=== PATIENT | female | born 1935 | race Caucasian/White ===

== ENCOUNTER 2018-05-09 08:46 | Emergency (ER) | payer MEDICARE ==
--- OUTSIDE RECORDS SUMMARY | 2018-05-09 08:53 | XMS REPORT ---
:1935 External Reference #:[id number] Author Organization [facility] Address [address] [address] Phone [phone] Care Team Providers Name Role Phone Maury Blackman MD Primary Care Physician Unavailable Payers Type Date Identification Numbers Payment Provider Subscriber Medicare Primary Effective: Policy Number: Medicare Ana Lilia Torres 1999 [id number] PayID: [id number] [address] [place] [address] [facility] Part B Effective: Policy Number: [facility] Ana Lilia Esteban [id number] [facility] Brian PayID: [id number] [address] [place] [address] Problems Date Description Provider Status Onset: 08/16/2013 Old myocardial infarction Alayna Acharya M.D. Active Onset: 08/16/2013 Essential hypertension Alayna Acharya M.D. Active Onset: 08/16/2013 Pure hypercholesterolemia Alayna Acharya M.D. Active Onset: 08/16/2013 Hypo-osmolality and or hyponatremia Alayna Acharya M.D. Active Onset: 10/11/2014 Atrial fibrillation Alayna Acharya M.D. Active Onset: 10/11/2014 Coronary arteriosclerosis Alayna Acharya M.D. Active Onset: 10/11/2014 Hyperlipidemia Alayna Acharya M.D. Active Onset: 10/11/2014 Benign essential hypertension Alayna Acharya M.D. Active Onset: 10/29/2015 Ischemic heart disease Alayna Acharya M.D. Active Onset: 05/02/2016 Paroxysmal atrial fibrillation Alayna Acharya M.D. Active Family History Date Family Member(s) Problem(s) Comments Father Peripheral Vascular Disease carotid disease (PVD) Mother Coronary Artery Disease (CAD) CABG, lived to 98 yo Also valve replacement 80 yo First Brother Coronary Artery Disease (CAD) CABG age 59 Social History Type Date Description Comments Marital Status Lives With Spouse Occupation Retired Cigarette Use Never Smoked Cigarettes ETOH Use Denies alcohol use Smoking Patient has never smoked Recreational Drug Use Denies Drug Use Daily Caffeine Half-Caffiene Coffee Exercise Type/Frequency Exercises sporadically walks dogs Allergies, Adverse Reactions, Alerts Date Description Reaction Status Severity Comments 08/16/2013 Sulfa Rash active 02/08/2014 Naproxen Increased blood pressure active Severe 08/16/2013 NKDA inactive Medications Medication Date Status Form Strength Qnty SIG Indications Ordering Provider Atorvastatin Calcium 10/29 Active Tablets 40mg 90tab 1 by Alayna s mouth Patrizia, every day M.D. Sotalol HCL (AF) 10/11 Active Tablets 120mg 90tab 1/2 tab Alayna s by mouth [place], twice a M.D. day Losartan Potassium 02/22 Active Tablets 50mg 180ta 1 by Alayna bs mouth [place], twice a M.D. day Hydrochlorothiazide Active Tablets 25mg 30tab 1/2 Unknown / s tablet po Am Aspirin Active Tablets 81mg 100ta 1 po qd Unknown /0000 bs Omeprazole Active Capsules 20mg 90cap 1 po qd Unknown / DR walker Gabapentin Active Capsules 300mg 90cap 2 tab Am, [place], / s 2 tab MD Maury afternoon , 3 tabs po qhs Acetaminophen Extra Active Tablets 500mg 1 tab by Unknown Strength /0000 mouth twice a day as needed Imodium A-D Active Tablets 2mg take 1 Unknown /0000 tablet by mouth after each loose stool for diarrhea as needed Lorazepam Active Tablets 0.5mg 1 every 4 Unknown /0000 hours as needed anxiety Potassium Chloride Active Capsules 10Meq 3 by Unknown ER /0000 ER mouth every day Amlodipine Besylate Active Tablets 2.5mg 1 by Unknown /0000 mouth every day Magnesium Active Tablets 400mg 1 by Unknown /0000 mouth once a day Vitamin B12 Active Tablets 1000mcg 1 by Unknown /0000 ER mouth every day Prochlorperazine 00 Active Tablets 5mg 1 by Unknown Maleate /0000 mouth three times a day as needed Cranberry Extract 02/08 Hx Cap 3600mg 2 caps po . daily Izabella Moreira M.D. 10/10 Sotalol HCL 02/21 Hx Tablets 80mg 90tab one half Alayna s tablet by Patrizia - mouth M.DCindy 10/11 twice a day Atorvastatin Calcium Hx Tablets 20mg 90tab take 1 Unknown / s tablet at - bedtime 10/29 Fish Oil Hx Capsules 1000mg 90cap 1 tab po Unknown / s daily - 05/01 Multivitamin Hx daily / - 01/12 Calcium + D Hx daily / - 01/12 Coq-10 Hx Cap 200mg 1 po Unknown / daily - 09/28 Multivitamins Hx 1 tablet Unknown / po daily - 09/28 [place] 3 Hx Capsules 1000mg 1 cap po Unknown /0000 t.i.d - 09/28 Prochlorperazine Hx Tablets 5mg 1 by Unknown Maleate /0000 mouth - every 6 /03 hours needed nausea Calcium + D3 Hx Tablets 1 by Unknown /0000 mouth - every day 09/28 Vital Signs Date Vital Result Comment 04/20/2018 Height 58 inches 4'10" Weight 120.00 lb Heart Rate 68 /min BP Systolic Sitting 128 mmHg lue reg cuff BP Diastolic Sitting 60 mmHg lue reg cuff BP Systolic Standing 124 mmHg BP Diastolic Standing 70 mmHg Respiratory Rate 16 /min BMI (Body Mass Index) 25.1 kg/m2 09/29/2017 Height 58 inches 4'10" Weight 119.00 lb no shoes Heart Rate 90 /min BP Systolic Sitting 122 mmHg Lue reg cuff BP Diastolic Sitting 72 mmHg Lue reg cuff BP Systolic Standing 128 mmHg Lue reg cuff BP Diastolic Standing 76 mmHg Lue reg cuff Respiratory Rate 16 /min BMI (Body Mass Index) 24.9 kg/m2 Ejection Fraction 65-70% echo 10/18/15 04/28/2017 Height 59 inches 4'11" Weight 119.00 lb Heart Rate 74 /min BP Systolic Sitting 128 mmHg Rue reg cuff BP Diastolic Sitting 74 mmHg Rue reg cuff BP Systolic Standing 134 mmHg Rue BP Diastolic Standing 88 mmHg Rue Respiratory Rate 16 /min BMI (Body Mass Index) 24.0 kg/m2 Ejection Fraction 65-70% 10/18/15 10/24/2016 Height 59.25 inches 4'11.25" Weight 120.00 lb with shoes Heart Rate 70 /min BP Systolic Sitting 146 mmHg Lue reg cuff BP Diastolic Sitting 80 mmHg Lue reg cuff BP Systolic Standing 140 mmHg Lue reg cuff BP Diastolic Standing 72 mmHg Lue reg cuff Respiratory Rate 17 /min BMI (Body Mass Index) 24.0 kg/m2 Ejection Fraction 65-70% date 10/18/15 ECHO 05/02/2016 Height 58.5 inches 4'10.50" Weight 121.00 lb no shoes Heart Rate 70 /min BP Systolic Sitting 158 mmHg LA reg cuff BP Diastolic Sitting 90 mmHg LA reg cuff BP Systolic Standing 156 mmHg LA reg cuff BP Diastolic Standing 90 mmHg LA reg cuff BP Systolic Recheck 136 mmHg Lue, reg cuff recheck BP Diastolic Recheck 86 mmHg Lue, reg cuff recheck Respiratory Rate 16 /min BMI (Body Mass Index) 24.9 kg/m2 Ejection Fraction 65-70% 10/18/2015 11/16/2015 Height 58.5 inches 4'10.50" Weight 122.31 lb Heart Rate 72 /min BP Systolic Sitting 142 mmHg LA reg cuff BP Diastolic Sitting 84 mmHg LA reg cuff BP Systolic Standing 136 mmHg LA reg cuff BP Diastolic Standing 82 mmHg LA reg cuff Respiratory Rate 16 /min BMI (Body Mass Index) 25.1 kg/m2 Ejection Fraction 65-70% 10/18/15 10/29/2015 Height 58.5 inches 4'10.50" Weight 122.00 lb w/ shoes Heart Rate 78 /min reg BP Systolic Sitting 142 mmHg Lue, reg cuff BP Diastolic Sitting 84 mmHg Lue, reg cuff BP Systolic Standing 134 mmHg Lue BP Diastolic Standing 86 mmHg Lue Respiratory Rate 16 /min BMI (Body Mass Index) 25.1 kg/m2 Ejection Fraction 65-70% as of 10/18/15 echo 10/30/2014 Height 58.5 inches 4'10.50" Weight 121.31 lb with shoes Heart Rate 66 /min BP Systolic Sitting 154 mmHg Ra reg cuff BP Diastolic Sitting 84 mmHg Ra reg cuff Respiratory Rate 16 /min BMI (Body Mass Index) 24.9 kg/m2 10/11/2014 Height 58.5 inches 4'10.50" Weight 121.00 lb with shoes Heart Rate 76 /min BP Systolic Sitting 130 mmHg Ra reg cuff BP Diastolic Sitting 66 mmHg Ra reg cuff BP Systolic Standing 124 mmHg Ra reg cuff BP Diastolic Standing 64 mmHg Ra reg cuff Respiratory Rate 17 /min BMI (Body Mass Index) 24.9 kg/m2 02/08/2014 Height 58.5 inches 4'10.50" Weight 120.00 lb Heart Rate 72 /min BP Systolic Sitting 138 mmHg BP Diastolic Sitting 80 mmHg Respiratory Rate 12 /min BMI (Body Mass Index) 24.7 kg/m2 09/21/2013 Heart Rate 62 /min BP Systolic Sitting 156 mmHg Lf arm, reg cuff BP Diastolic Sitting 88 mmHg Lf arm, reg cuff BP Systolic Standing 152 mmHg BP Diastolic Standing 92 mmHg Respiratory Rate 14 /min 08/16/2013 Height 58.5 inches 4'10.50" Weight 120.00 lb 2 Lbs decrease 02/08/13 Heart Rate 70 /min BP Systolic Sitting 142 mmHg Lf arm, reg cuff BP Diastolic Sitting 84 mmHg Lf arm, reg cuff BP Systolic Standing 138 mmHg BP Diastolic Standing 84 mmHg Respiratory Rate 14 /min BMI (Body Mass Index) 24.7 kg/m2 Results Test Date Test Result H/L Range Note Laboratory test finding 10/02/2017 Magnesium 2.4 mg/dL 1.9-2.7 1 TSH (Thyroid Stim Horm) 2.96 mcIU/mL 0.34-5.60 1 Pathologist Review (SEE NOTE) 1, 2 CBC Auto Diff 10/02/2017 White Blood Count 8.4 10^3/uL 3.5-10.8 1 Red Blood Count 4.08 10^6/uL 4.0-5.4 1 Hemoglobin 13.0 g/dL 12.0-16.0 1 Hematocrit 39 % 35-47 1 Mean Corpuscular Volume 94 fL 80-97 1 Mean Corpuscular Hemoglobin 32 pg High 27-31 1 Mean Corpuscular HGB Conc 34 g/dL 31-36 1 Red Cell Distribution Width 12 % 10.5-15 1 Platelet Count 194 10^3/uL 150-450 1 Mean Platelet Volume 7 um3 Low 7.4-10.4 1 Abs Neutrophils 2.7 10^3/uL 1.5-7.7 1 Abs Lymphocytes 5.0 10^3/uL High 1.0-4.8 1 Abs Monocytes 0.6 10^3/uL 0-0.8 1 Abs Eosinophils 0.2 10^3/uL 0-0.6 1 Abs Basophils 0.1 10^3/uL 0-0.2 1 Abs Nucleated RBC 0 10^3/uL 1 Granulocyte % 31.9 % Low 38-83 1 Lymphocyte % 58.7 % High 25-47 1 Monocyte % 6.9 % 1-9 1 Eosinophil % 1.9 % 0-6 1 Basophil % 0.6 % 0-2 1 Nucleated Red Blood Cells % 0.2 1 Comp Metabolic Panel 10/02/2017 Sodium 135 mmol/L 133-145 1 Potassium 3.9 mmol/L 3.5-5.0 1 Chloride 98 mmol/L Low 101-111 1 Co2 Carbon Dioxide 32 mmol/L 22-32 1 Anion Gap 5 mmol/L 2-11 1 Glucose 94 mg/dL 70-100 1 Blood Urea Nitrogen 10 mg/dL 6-24 1 Creatinine 0.67 mg/dL 0.51-0.95 1 BUN/Creatinine Ratio 14.9 8-20 1 Calcium 9.4 mg/dL 8.6-10.3 1 Total Protein 6.3 g/dL Low 6.4-8.9 1 Albumin 4.2 g/dL 3.2-5.2 1 Globulin 2.1 g/dL 2-4 1 Albumin/Globulin Ratio 2.0 1-3 1 Total Bilirubin 1.60 mg/dL High 0.2-1.0 1 Alkaline Phosphatase 76 U/L 34-104 1 Alt 18 U/L 7-52 1 Ast 21 U/L 13-39 1 Egfr Non- 84.1 >60 1 Egfr 108.1 >60 1, 3 Lipid Panel - [facility] 11/05/2016 Creatine Kinase(CK) 83 U/L 10-223 4 Comp Metabolic Panel 11/05/2016 Sodium 132 mmol/L Low 133-145 Potassium 3.8 mmol/L 3.5-5.0 Chloride 95 mmol/L Low 101-111 Co2 Carbon Dioxide 30 mmol/L 22-32 Anion Gap 7 mmol/L 2-11 Glucose 85 mg/dL 70-100 Blood Urea Nitrogen 12 mg/dL 6-24 Creatinine 0.67 mg/dL 0.51-0.95 BUN/Creatinine Ratio 17.9 8-20 Calcium 9.4 mg/dL 8.6-10.3 Total Protein 6.2 g/dL Low 6.4-8.9 Albumin 4.0 g/dL 3.2-5.2 Globulin 2.2 g/dL 2-4 Albumin/Globulin Ratio 1.8 1-3 Total Bilirubin 1.50 mg/dL High 0.2-1.0 Alkaline Phosphatase 70 U/L 34-104 Alt 18 U/L 7-52 Ast 21 U/L 13-39 Egfr Non- 84.3 >60 Egfr 108.4 >60 5 Lipid Profile (Trig/Chol/HDL) 11/05/2016 Triglycerides 119 mg/dL 6 Cholesterol 154 mg/dL 7 HDL Cholesterol 52.5 mg/dL 8 LDL Cholesterol 78 mg/dL 9 Laboratory test finding 05/12/2016 LDL Cholesterol Direct 66 mg/dL 10 Protein Electrophoresis 02/08/2014 Total Protein(Pep) 6.4 g/dL 6.3 - 7.9 11 Albumin 3.5 g/dL 3.4-4.7 11 Alpha-1 Globulin 0.2 g/dL 0.1-0.3 11 Alpha-2 Globulin 0.9 g/dL 0.6-1.0 11 Beta Globulin 0.9 g/dL 0.7-1.2 11 Gamma Globulin 0.9 g/dL 0.6-1.6 11 Albumin/Globulin Ratio 1.22 11 Impression See Comment 11, 12 Laboratory test 02/08/2014 TSH (Thyroid 1.86 IU/mL 0.34-5.60 11, 13 finding Stimulating Horm) Vitamin B12 251 pg/mL 180-914 11, 14 Folate > 20.00 ng/mL >3.99 11, 15 Methylmalonic Acid 0.20 nmol/mL <=0.40 11, 16 Homocysteine 9 mcmol/L 11, 17 Debbie (Anti-Nuclear AB) Screen Negative Negative 11, 18 Erythrocyte Sed Rate 11 mm/Hr 0-40 11, 19 C Reactive Protein < 1.00 mg/L < 5.00 11, 20 Basic Metabolic Panel 09/19/2013 Sodium 131 mmol/L Low 133-145 Potassium 3.8 mmol/L 3.5-5.0 Chloride 94 mmol/L Low 101-111 Co2 Carbon Dioxide 32.0 mmol/L 22-32 Anion Gap 5.0 mmol/L 2-11 Glucose 92 mg/dL 70-100 Blood Urea Nitrogen 9 mg/dL 6-24 Creatinine 0.70 mg/dL 0.50-1.40 BUN/Creatinine Ratio 12.9 8-20 Calcium 9.4 mg/dL 8.1-9.9 Egfr Non- 80.7 >60 Egfr 103.8 >60 21 1 Variant LY 2 Mild absolute lymphocytosis, favor reactive. Clinical correlation and appropriate clinical follow-up suggested. Reviewed by Dr. Bal 3 Because ethnic data is not always readily available, this report includes an eGFR for both -Americans and non- Americans. The National Kidney Disease Education Program (NKDEP) does not endorse the use of the MDRD equation for patients that are not between the ages of 18 and 70, are , have extremes of body size, muscle mass, or nutritional status, or are non- or non-. According to the National Kidney Foundation, irrespective of diagnosis, the stage of the disease is based on the level of kidney function: Stage Description GFR(mL/min/1.73 m(2)) 1 Kidney damage with normal or decreased GFR 90 2 Kidney damage with mild decrease in GFR 60-89 3 Moderate decrease in GFR 30-59 4 Severe decrease in GFR 15-29 5 Kidney failure <15 (or dialysis) 4 FASTING Fasting next week CC: PMD Dr. Blackman 5 Because ethnic data is not always readily available, this report includes an eGFR for both -Americans and non- Americans. The National Kidney Disease Education Program (NKDEP) does not endorse the use of the MDRD equation for patients that are not between the ages of 18 and 70, are , have extremes of body size, muscle mass, or nutritional status, or are non- or non-. According to the National Kidney Foundation, irrespective of diagnosis, the stage of the disease is based on the level of kidney function: Stage Description GFR(mL/min/1.73 m(2)) 1 Kidney damage with normal or decreased GFR 90 2 Kidney damage with mild decrease in GFR 60-89 3 Moderate decrease in GFR 30-59 4 Severe decrease in GFR 15-29 5 Kidney failure <15 (or dialysis) 6 Desirable <150 Borderline high 150-199 High 200-499 Very High >500 7 Desirable <200 Borderline high 200-239 High >239 8 Low <40 Desirable: 40-60 High: >60 9 Desirable: <100 mg/dL Near Optimal: 100-129 mg/dL Borderline High: 130-159 mg/dL High: 160-189 mg/dL Very High: >189 mg/dL 10 Desirable: <100 mg/dL Near Optimal: 100-129 mg/dL Borderline High: 130-159 mg/dL High: 160-189 mg/dL Very High: >189 mg/dL 11 with immunofixation 12 RESULT: No apparent monoclonal protein on serum electrophoresis. Test Performed by: [place] [address] Visualizer: Cristian Burkett III, M.D. 13 with immunofixation 14 Normal Range 180 to 914 Indeterminate Range 145 to 180 Deficient Range <145 15 with immunofixation 16 Test Performed by: [place] [address] Visualizer: Cristian Burkett III, M.D. 17 -- REFERENCE VALUE -- <=13 (Fasting) Test Performed by: [place] [address] Visualizer: Cristian Burkett III, M.D. 18 with immunofixation 19 with immunofixation 20 Acute inflammation: >10.00 21 Because ethnic data is not always readily available, this report includes an eGFR for both -Americans and non- Americans. The National Kidney Disease Education Program (NKDEP) does not endorse the use of the MDRD equation for patients that are not between the ages of 18 and 70, are , have extremes of body size, muscle mass, or nutritional status, or are non- or non-. According to the National Kidney Foundation, irrespective of diagnosis, the stage of the disease is based on the level of kidney function: Stage Description GFR(mL/min/1.73 m(2)) 1 Kidney damage with normal or decreased GFR 90 2 Kidney damage with mild decrease in GFR 60-89 3 Moderate decrease in GFR 30-59 4 Severe decrease in GFR 15-29 5 Kidney failure <15 (or dialysis) Procedures Date CPT Code Description Status 04/20/2018 99592 EKG Tracing & Interpretation Completed 09/29/2017 59395 EKG Tracing & Interpretation Completed 04/28/2017 02705 EKG Tracing & Interpretation Completed 10/24/2016 31156 EKG Tracing & Interpretation Completed 05/02/2016 02510 EKG Tracing & Interpretation Completed 11/11/2015 36060 Holter Monitoring 24 HR New Completed 11/08/2015 38551 Holter Monitoring 24 HR New Completed 10/29/2015 27590 EKG Tracing & Interpretation Completed 10/18/2015 56800 Left Heart Cath. Incl S/I Coronaries, Angio S/I V Gram Completed If Done 10/18/2015 08019 ECHO Transthorasic Realtime 2D W Doppler & Color Flow Completed Hosp 10/18/2015 69507 EKG, Interpretation Only Completed 10/17/2015 19830 EKG, Interpretation Only Completed 10/30/2014 03504 EKG Tracing & Interpretation Completed 10/11/2014 07427 EKG Tracing & Interpretation Completed 04/04/2014 75009 Carotid Doppler,Bilateral Completed 03/31/2014 50961 Needle Electromyography Complete, Five Or More Muscles Completed Studied 03/31/2014 78014 Nerve Conduction 03-04 Studies Completed 09/23/2013 72423 Artery Study Extremity Mult Levels Bilateral Completed 08/16/2013 74329 EKG Tracing & Interpretation Completed 02/08/2013 92054 EKG Tracing & Interpretation Completed 01/31/2012 23338 EKG, Interpretation Only Completed 01/30/2012 67538 Left Heart Cath. Incl S/I Coronaries, Angio S/I V Gram Completed If Done 01/30/2012 64497 Cath PLMT&NJX L Ventriculog Img S&I Completed 01/30/2012 47097 Left Health Catheterization W/Inj For Left Completed Ventriculography,S&I 01/30/2012 00780 Pulse Wave/Continuous-Interp.RPT Completed 01/30/2012 15615 Pulse Wave/Continuous-Interp.RPT Completed 01/30/2012 71196 ECHO Transthorasic Realtime 2D W Doppler & Color Flow Completed Hosp 01/30/2012 69798 EKG, Interpretation Only Completed 01/30/2012 15726 Ptca W/Intracor Stent Completed 01/30/2012 88536 IV Rx Trancath Therapy(Nitro/Catalina) Completed Encounters Type Date Location Provider CPT E/M Dx Office Visit 04/20/2018 [facility] Carlos A Acharya M.D. 39273 I25.10 9:00a [facility] I48.0 E78.00 I10 Office Visit 09/29/2017 10:30a [facility] Of [facility] TILA Diehl 56312 I10 I25.10 I48.0 E78.5 Office Visit 04/28/2017 3:30p [facility] Carlos A Acharya M.D. 97166 I48.0 [facility] I25.10 E78.00 I10 Office Visit 10/24/2016 10:30a [facility] Of [facility] TILA Diehl 73417 E78.00 I48.0 I25.10 Office Visit 05/02/2016 9:00a [facility] Carlos A Acharya M.D. 11067 I48.0 [facility] E78.0 I25.10 I10 Office Visit 11/16/2015 9:45a [facility] TILA Diehl 28623TXR I48.0 E78.5 I10 I25.10 Office Visit 10/29/2015 3:00p [facility] Carlos A Acharya M.D. 42535 I24.9 [facility] I48.0 I10 E78.5 I25.10 Office Visit 10/19/2015 11:08a [facility], Brittney Ireland 15965 I21.4 Hospitalists N.P. I10 E78.5 Office Visit 10/18/2015 11:07a [facility], Walter Olvrea M.D. 47097 I21.4 Hospitalists I10 E78.5 Office Visit 10/18/2015 1:58p [facility] Demetria Edwards 43036 I21.4 Carlos Sena Office Visit 10/30/2014 10:00a [facility] TILA Diehl 07314CFH 427.31 Of [facility] 414.01 272.4 427.61 Office Visit 10/11/2014 1:45p [facility] Carlos A Acharya M.D. 48978 427.31 [facility] 414.01 272.4 401.1 427.61 Office Visit 02/08/2014 1:00p [facility] Ethan Moreira, 08117 443.9 Services Of [facility] MDiana 782.0 Office Visit 09/21/2013 10:30a [facility] [place] [place] [address] 401.9 Office Visit 08/16/2013 10:30a [facility] Alayna Acharya M.D. 54087 412 401.9 272.0 276.1 Office Visit 02/08/2013 9:30a [facility] Of [facility] Alayna Acharya M.D. 19090 412 427.31 401.9 272.0 Office Visit 01/31/2012 11:17a [facility] Aspen Ware D.O. 93418 780.4 410.71 414.01 Office Visit 01/30/2012 11:19a [facility] Qutaybeh S. Maghaydah, 66590 780.4 M.DCindy 410.71 414.01 Office Visit 01/29/2012 11:21a [facility] Qutaybeh S. Maghaydah, 45052 794.31 M.DCindy 411.89 794.31 401.1 272.4 411.89 272.4 Plan of Care 04/20/2018 - Alayna Acharya M.D.I25.10 [place] heart disease of [place] coronary artery w/o ang pctrsComments:Your ECG is normal.I48.0 Paroxysmal atrial fibrillationComments:You are in the normal rhythm today, good rate control. Good intervalsFollow up:6 months with ECG with Brittney Ireland NP.Recommendations: Continue Sotalol. Option/recommendation of adding a blood thinner for future afib to decrease stroke risk. https://en.wikipedia.org/wiki/WJH1BC4%E2%80%93VASc _score See printed information and link above. Discuss this with Dr Blackman.E78.00 Pure hypercholesterolemia, unspecifiedComments:Excellent control. the last 2 years.I will review new labs when [id number] Essential (primary) hypertensionComments:Well controlledRecommendations:Continue current medications
--- OUTSIDE RECORDS SUMMARY | 2018-05-09 08:53 | XMS REPORT ---
:1935 External Reference #:[id number] Author Organization [facility] Address [address], [address] [place] [address] Phone [phone] Care Team Providers Name Role Phone Maury Blackman MD Care Team Information Speaker Mounter Unavailable Maury Blackman MD Primary Care Physician Unavailable Payers Type Date Identification Numbers Payment Provider Subscriber Medicare Primary Policy Number: [id number] Medicare Ana Lilia Torers PayID: [id number] [address] [place] [address] Problems Description No Information Family History Date Family Member(s) Problem(s) Comments : (age 72 Years) Father due to Unknown Causes Mother Macular Degeneration : (age 98 Years) Mother due to Heart Disease First Son Alive First Daughter Alive Second Daughter Alive First Brother Alive First Sister Alive Second Sister Alive Social History Type Date Description Comments Marital Status Occupation Retired ETOH Use Denies alcohol use Smoking Patient has never smoked Allergies, Adverse Reactions, Alerts Date Description Reaction Status Severity Comments 04/19/2018 Sulfa Drugs active Medications Medication Date Status Form Strength Qnty SIG Indications Ordering Provider Potassium Chloride ER 00// Active Tablets 10Meq sig 1 [place], 0000 ER po tid MD Maury Amlodipine Besylate / Active Tablets 2.5mg sig 1 [place], 0000 po qd MD Maury Sotalol HCL // Active Tablets 120mg 1/2 Patrizia, 0000 tablet MD Alayna bid Gabapentin 00/ Active Capsules 300mg sig 1 [place], 0000 po tid MD Maury Hydrochlorothiazide // Active Tablets 25mg sig 1/2 [place], 0000 tablet MD Maury qd Omeprazole / Active Capsules 20mg sig 1 [place], 0000 DR po qd Ramirez, MD Losartan Potassium / Active Tablets 50mg si 1 po Patrizia, 0000 bid MD Alayna Atorvastatin Calcium / Active Tablets 40mg sig 1 [place], 0000 po qd MD Alayna Vitamin B-12 / Active Tablets 1000mcg 1 tabl Unknown Natural 0000 by mouth daily Aspir-81 / Active Tablets 81mg [address] mouth every day Lorazepam / Hx Tablets 0.5mg Yehuda 0000 - MD Maury 2017 Prochlorperazine / Hx Tablets 5mg Yehuda Maleate 0000 - MD Maury 2017 Results Description No Information Procedures Description No Information Plan of Care Future Appointment(s):05/12/2018 11:30 am - Jacob Cheng MD at Operating Room 11:30 am - Jacob Cheng MD at Pywfvmxjdicmp78/30/2018 9:30 am - Jacob Cheng MD at Ophthalmology
--- OUTSIDE RECORDS SUMMARY | 2018-05-09 08:53 | XMS REPORT ---
:1935 External Reference #:[id number] Author Organization [facility] Address [address] [place] [address] Phone [phone] Care Team Providers Name Role Phone Maury Blackman MD Primary Care Physician Unavailable Payers Type Date Identification Numbers Payment Provider Subscriber Medicare Primary Effective: Policy Number: Medicare Ana Lilia Torres 1999 [id number] PayID: [id number] [address] [place] [address] [facility] Part B Effective: Policy Number: [facility] Ana Lilia Esteban 2011 [id number] [facility] Brian PayID: [id number] [address] [place] [address] Problems Date Description Provider Status Onset: 08/16/2013 Old myocardial infarction Aalyna Acharya M.D. Active Onset: 08/16/2013 Essential hypertension Alayna Acharya M.D. Active Onset: 08/16/2013 Pure hypercholesterolemia Alayna Acharya M.D. Active Onset: 08/16/2013 Hypo-osmolality and or hyponatremia Aalyna Acharya M.D. Active Onset: 10/11/2014 Atrial fibrillation [...] 90tab 1/2 tab Alayna s by mouth [place], twice a M.D. day Losartan Potassium 02/22 Active Tablets 50mg 180ta 1 by Alayna bs mouth [place], twice a M.D. day Hydrochlorothiazide Active Tablets [...] tablet Unknown / po daily - 09/28 [place] 3 Hx Capsules 1000mg 1 cap po [...] 108.1 >60 1, 3 Lipid Panel - [facility] 11/05/2016 Creatine Kinase(CK) 83 U/L 10-223 4 [...] protein on serum electrophoresis. Test Performed by: [place] [address] [employer] Maintenance Supervisor: Cristian Burkett III, M.D. 13 with immunofixation 14 Normal Range 180 to 914 Indeterminate Range 145 to 180 Deficient Range <145 15 with immunofixation 16 Test Performed by: [place] [address] [employer] Supervisor: Cristian Burkett III, M.D. 17 -- REFERENCE VALUE -- <=13 (Fasting) Test Performed by: [place] [address] [employer] Supervisor: Cristian Burkett III, M.D. 18 with immunofixation [...] Procedures Date CPT Code Description Status 04/20/2018 45571 EKG Tracing & Interpretation Completed 09/29/2017 93256 EKG Tracing & Interpretation Completed 04/28/2017 38520 EKG Tracing & Interpretation Completed 10/24/2016 23420 EKG Tracing & Interpretation Completed 05/02/2016 13035 EKG Tracing & Interpretation Completed 11/11/2015 55170 Holter Monitoring 24 HR New Completed 11/08/2015 70260 Holter Monitoring 24 HR New Completed 10/29/2015 10013 EKG Tracing & Interpretation Completed 10/18/2015 56822 Left Heart Cath. Incl S/I Coronaries, Angio S/I V Gram Completed If Done 10/18/2015 29393 ECHO Transthorasic Realtime 2D W Doppler & Color Flow Completed Hosp 10/18/2015 92730 EKG, Interpretation Only Completed 10/17/2015 77025 EKG, Interpretation Only Completed 10/30/2014 08103 EKG Tracing & Interpretation Completed 10/11/2014 66820 EKG Tracing & Interpretation Completed 04/04/2014 37555 Carotid Doppler,Bilateral Completed 03/31/2014 38225 Needle Electromyography Complete, Five Or More Muscles Completed Studied 03/31/2014 11808 Nerve Conduction 03-04 Studies Completed 09/23/2013 64779 Artery Study Extremity Mult Levels Bilateral Completed 08/16/2013 92481 EKG Tracing & Interpretation Completed 02/08/2013 62080 EKG Tracing & Interpretation Completed 01/31/2012 09825 EKG, Interpretation Only Completed 01/30/2012 75360 Left Heart Cath. Incl S/I Coronaries, Angio S/I V Gram Completed If Done 01/30/2012 41124 Cath PLMT&NJX L Ventriculog Img S&I Completed 01/30/2012 21003 Left Health Catheterization W/Inj For Left Completed Ventriculography,S&I 01/30/2012 04397 Pulse Wave/Continuous-Interp.RPT Completed 01/30/2012 81690 Pulse Wave/Continuous-Interp.RPT Completed 01/30/2012 13654 ECHO Transthorasic Realtime 2D W Doppler & Color Flow Completed Hosp 01/30/2012 99494 EKG, Interpretation Only Completed 01/30/2012 54845 Ptca W/Intracor Stent Completed 01/30/2012 42245 IV Rx Trancath Therapy(Nitro/Catalina) Completed Encounters Type Date Location Provider CPT E/M Dx Office Visit 09/29/2017 10:30a [facility] TILA Diehl 06718 I10 I25.10 I48.0 E78.5 Office Visit 04/28/2017 3:30p [facility] Carlos A Acharya M.D. 17304 I48.0 [facility] I25.10 E78.00 I10 Office Visit 10/24/2016 10:30a [facility] TILA Diehl 56042 E78.00 I48.0 I25.10 Office Visit 05/02/2016 9:00a [facility] Carlso A Acharya M.D. 30465 I48.0 [facility] E78.0 I25.10 I10 Office Visit 11/16/2015 9:45a [facility] TILA Diehl 32161HPA I48.0 E78.5 I10 I25.10 Office Visit 10/29/2015 3:00p [facility] Carlos A Acharya M.D. 91419 I24.9 [facility] I48.0 I10 E78.5 I25.10 Office Visit 10/19/2015 11:08a [facility] Brittney Ireland 21928 I21.4 [facility] I10 E78.5 Office Visit 10/18/2015 1:58p [facility] Demetria Edwards 94639 I21.4 Carlos Sena Office Visit 10/18/2015 11:07a [facility] Walter Olvera M.D. 19826 I21.4 Assoc[facility] Hospitalists I10 E78.5 Office Visit 10/30/2014 10:00a [facility] TILA Diehl 32548HDS 427.31 [facility] 414.01 272.4 427.61 Office Visit 10/11/2014 1:45p [facility] Carlos A Acharya M.D. 94337 427.31 [facility] 414.01 272.4 401.1 427.61 Office Visit 02/08/2014 1:00p [facility] Ethan Moreira, 31423 443.9 [facility] Carlos 782.0 Office Visit 09/21/2013 10:30a [facility] [place] [address] 401.9 Office Visit 08/16/2013 10:30a [facility] Alayna Acharya M.D. 89072 412 401.9 272.0 276.1 Office Visit 02/08/2013 9:30a [facility] Alayna Acharya M.D. 08232 412 427.31 401.9 272.0 Office Visit 01/31/2012 11:17a [facility] Aspen Ware D.O. 54450 780.4 410.71 414.01 Office Visit 01/30/2012 11:19a [facility] Demetria Sena, 82194 780.4 M.D. 410.71 414.01 Office Visit 01/29/2012 11:21a [facility] Demetria Sena 81954 794.31 MCindyDCindy 411.89 794.31 401.1 272.4 411.89 272.4 Plan of Care No Information Available
[2018-05-09 08:58] VITALS: BP 138/77
--- NOTE | 2018-05-09 09:17 | UC ---
Complaint Female HPI - HPI Summary HPI Summary: This patient is a 82 year old F presenting to [facility] with a chief complaint of dysuria that began 05/05/2018. The patient rates the pain 7/10 in severity. Symptoms aggravated by nothing. Symptoms alleviated by nothing. Patient reports increased urinary pressure and increased urinary frequency. Patient denies fever, chills, back pain, and suprapubic abd pain. Patient states she has a prolapsed bladder. - History Of Current Complaint Chief Complaint: UCGU Stated Complaint: UTI Time Seen by Provider: 05/09/18 08:56 Hx Obtained From: Patient ?: No Onset/Duration: Sudden Onset, Lasting Days, Still Present Timing: Constant Severity Initially: Moderate Severity Currently: Moderate Pain Intensity: 7 Pain Scale Used: 0-10 Numeric Character: Burning Aggravating Factor(s): Nothing Alleviating Factor(s): Nothing Associated Signs And Symptoms: Negative: Fever - Allergies/Home Medications Allergies/Adverse Reactions: Allergies Allergy/AdvReac Type Severity Reaction Status Date / Time Buojwvx-Jlg-Mms Reductase Allergy Rash Verified 05/09/18 08:59 Inhibitor Sulfa (Sulfonamide Allergy Unknown Verified 05/09/18 08:59 Antibiotics) Reaction Details PMH/Surg Hx/FS Hx/Imm Hx Previously Healthy: No Cardiovascular History: Atrial Fibrillation Neurological History: Other Other Neurological History: Pedal neuropathy - Surgical History Surgical History: Yes Surgery Procedure, Year, and Place: GB removed; cardiac stent placed 2011 - Family History Known Family History: Positive: Cardiac Disease Negative: Diabetes - Social History Occupation: Retired Lives: With Family Alcohol Use: None Substance Use Type: None Smoking Status (MU): Never Smoked Tobacco Have You Smoked in the Last Year: No - Immunization History Most Recent Influenza Vaccination: 2015 Most Recent Tetanus Shot: remote Most Recent Pneumonia Vaccination: current Review of Systems Constitutional: Other - Negative fever and chills Gastrointestinal: Other - Negative abd pain Genitourinary: Dysuria, Frequency, Other - Positive increased urinary pressure Musculoskeletal: Other: - Negative back pain All Other Systems Reviewed And Are Negative: Yes Physical Exam - Summary Physical Exam Summary: General: well-appearing, no pain distress Skin: warm, color reflects adequate perfusion, dry Head: normal Eyes: EOMI, SINGH ENT: normal Neck: supple, nontender Respiratory: CTA, breath sounds present Cardiovascular: RRR Abdomen: soft, nontender Bowel: present Musculoskeletal: normal, strength/ROM intact Neurological: sensory/motor intact, A&O x3 Psychological: affect/mood appropriate Triage Information Reviewed: Yes Vital Signs: Initial Vital Signs Temp 97.4 F 05/09/18 08:55 Pulse 77 05/09/18 08:55 Resp 18 05/09/18 08:55 BP 138/77 05/09/18 08:55 Pulse Ox 97 05/09/18 08:55 Vital Signs Reviewed: Yes Re-Evaluation - Re-Evaluation First Eval Re-Evaluation Time: 09:46 Change: Unchanged Comment: Discussed results and plan of care with pt Complaint Female Dx - Course Course Of Treatment: F/U PMD; RECHECK SOONER IF WORSE. - Differential Dx/Diagnosis Provider Diagnoses: UTI Discharge - Sign-Out/Discharge Documenting (check all that apply): Patient Departure All imaging exams completed and their final reports reviewed: No Studies - Discharge Plan Condition: Stable Disposition: HOME Prescriptions: Nitrofurantoin Monohyd/M-Cryst [Macrobid 100 mg Capsule] 100 mg PO BID #14 cap Patient Education Materials: Urinary Tract Infection in Women (ED) Referrals: Maury Blackman MD [Primary Care Provider] - Additional Instructions: FOLLOW UP WITH YOUR DOCTOR. GET RECHECKED FOR ANY WORSENING OF YOUR CONDITION; PAIN, FEVER, YOU FEEL ILL OR QUESTIONS OR CONCERNS. - Billing Disposition and Condition Condition: STABLE Disposition: Home - Attestation Statements Document Initiated by Scribe: Yes Documenting Scribe: Sabrina Lorenzo Provider For Whom Scribe is Documenting (Include Credential): Rashid Gonzalez MD Scribe Attestation: I, Sabrina Lorenzo, scribed for Rashid Gonzalez MD on 05/09/18 at 1054. Scribe Documentation Reviewed: Yes Provider Attestation: The documentation as recorded by the Sabrina zepeda accurately reflects the service I personally performed and the decisions made by me, Rashid Gonzalez MD
== END 2018-05-09 09:45 | disposition home or self-care (01) ==
LOC: UCEAST 08:46
DX: N39.0 Urinary tract infection, site not specified (principal); N81.10 Cystocele, unspecified; Z88.8 Allergy status to other drugs, medicaments and biological substances
CPT/HCPCS: 81003; 87077; 87086; 87186; 99212; G0463